=== PATIENT | female | born 1995 | race Caucasian/White ===

== ENCOUNTER 2020-03-06 15:47 | Emergency (ER) | payer OTHER ==
[2020-03-06] MEDS ORDERED: ACETAMINOPHEN 500 MG TABLET (FP) PO ONE (15:57)
[2020-03-06 15:58] VITALS: BP 108/63; PULSE 75; TEMP 98; BMI 27.3
[2020-03-06] MEDS ORDERED: ACETAMINOPHEN 500 MG TABLET (FP) ONE (16:31)
[2020-03-06 16:48] LABS: BASO % 0.6 % (0-2.0); EOS % 0.6 % (0-4.5); HEMATOCRIT 41.2 % (32.4-45.2); HEMOGLOBIN 13.9 GM/dL (10.7-15.3); LYMPH % 21.5 % (8-40); MCH 30.2 pg (25.7-33.7); MCHC 33.7 g/dl (32.0-36.0); MEAN CELL VOLUME 89.7 fl (80-96); MEAN PLT VOLUME 7.6 fl (7.5-11.1); MONO % 8.1 % (3.8-10.2); NEUT % 69.2 % (42.8-82.8); PLATELET COUNT 272 K/MM3 (134-434); RDW 13.9 % (11.6-15.6); WHITE BLOOD COUNT 9.9 K/mm3 (4.0-10.0)
[2020-03-06 17:07] LABS: POTASSIUM 3.7 mmol/L (3.5-5.1)
[2020-03-06 17:08] LABS: URINE APPEARANCE CLEAR; URINE BILIRUBIN NEGATIVE (NEGATIVE); URINE COLOR YELLOW; URINE GLUCOSE (UA) NEGATIVE (NEGATIVE); URINE KETONE NEGATIVE (NEGATIVE); URINE LEUK ESTERASE NEGATIVE (NEGATIVE); URINE NITRITE NEGATIVE (NEGATIVE); URINE PROTEIN NEGATIVE (NEGATIVE); URINE UROBILINOGEN 0.2 mg/dL (0.2-1.0)
[2020-03-06 17:10] LABS: BLOOD UREA NITROGEN 8.4 mg/dL (7-18); CALCIUM 9.2 mg/dL (8.5-10.1)
[2020-03-06 17:14] LABS: CREATININE 0.6 mg/dL (0.55-1.3)
== END 2020-03-06 17:56 | disposition home or self-care (01) ==
LOC: EDBD → JER 15:47
DX: O99.891 Other specified diseases and conditions complicating pregnancy (principal); Z3A.01 Less than 8 weeks gestation of pregnancy
CPT/HCPCS: 36415; 76817-TC; 80048; 81003; 84702; 85025; 87070; 87086; 87186; 87205; 99284-25

== ENCOUNTER 2020-06-19 14:36 | Emergency (ER) | payer OTHER ==
[2020-06-19 14:45] VITALS: BMI 24.4
[2020-06-19 17:00] VITALS: BP 120/67; PULSE 94; TEMP 98.3
[2020-06-19 17:50] LABS: PH,URINE 5.5 (5.0-8.0); URINE APPEARANCE CLEAR; URINE BILIRUBIN NEGATIVE (NEGATIVE); URINE COLOR YELLOW; URINE GLUCOSE (UA) 1+ (NEGATIVE); URINE KETONE NEGATIVE (NEGATIVE); URINE LEUK ESTERASE NEGATIVE (NEGATIVE); URINE NITRITE NEGATIVE (NEGATIVE); URINE PROTEIN NEGATIVE (NEGATIVE); URINE UROBILINOGEN 0.2 mg/dL (0.2-1.0)
== END 2020-06-19 19:30 | disposition home or self-care (01) ==
LOC: JER 14:36
DX: M54.9 Dorsalgia, unspecified (principal); Z3A.23 23 weeks gestation of pregnancy
CPT/HCPCS: 76815; 76817-TC; 81003; 99285-25

== ENCOUNTER 2020-10-07 21:30 | Inpatient (IN) | payer OTHER ==
[2020-10-08 02:02] LABS: BASO % 0.6 % (0-2.0); EOS % 0.2 % (0-4.5); HEMATOCRIT 31.9 % (32.4-45.2); HEMOGLOBIN 11.1 GM/dL (10.7-15.3); LYMPH % 20.9 % (8-40); MCH 31.6 pg (25.7-33.7); MCHC 34.9 g/dl (32.0-36.0); MEAN CELL VOLUME 90.7 fl (80-96); MEAN PLT VOLUME 7.5 fl (7.5-11.1); MONO % 5.9 % (3.8-10.2); NEUT % 72.4 % (42.8-82.8); PLATELET COUNT 344 10^3/uL (134-434); RBC 3.51 M/mm3 (3.60-5.2); RDW 12.7 % (11.6-15.6); WHITE BLOOD COUNT 10.6 K/mm3 (4.0-10.0)
[2020-10-08 02:22] LABS: BLOOD UREA NITROGEN 9.3 mg/dL (7-18); CALCIUM 9.2 mg/dL (8.5-10.1)
[2020-10-08 02:26] LABS: CREATININE 0.5 mg/dL (0.55-1.3)
[2020-10-08] MEDS ORDERED: ELECTROLYTE-148 SOLN 1,000 ML IV SCH (02:30)
[2020-10-08 02:42] VITALS: BMI 27.2
[2020-10-08 02:51] LABS: INR 0.9 (0.83-1.09); PROTHROMBIN TIME (PATIENT) 10.9 SEC (9.7-13.0)
[2020-10-08] MEDS ORDERED: FENTANYL/BUPIVACAINE/NS/PF - PCEA - 50 ML DISP.SYRIN EP ONE (03:17)
[2020-10-08] MEDS ORDERED: PCA PUMP NR ONE (03:18)
[2020-10-08 03:20] LABS: HIV INTERPRETATION NEGATIVE (NEGATIVE)
[2020-10-08] MEDS ORDERED: NALOXONE HCL 0.4 MG/ML VIAL IVPUSH PRN (04:04)
[2020-10-08] MEDS ORDERED: FENTANYL/BUPIVACAINE/NS/PF - PCEA - 50 ML DISP.SYRIN EP SCH (04:15)
[2020-10-08] MEDS ORDERED: LIDOCAINE HCL 1% PRESERVATIVE FREE - 30ML VIAL ONE (04:45)
[2020-10-08] MEDS ORDERED: OXYTOCIN 20 UNITS in 0.9% NS 20 UNIT/1,000 ML INFUS.BAG IV ONE ×2 (04:46→06:05)
[2020-10-08] MEDS ORDERED: BENZOCAINE 28 GM HEMORRHOIDAL OINTMENT TP PRN (05:12)
[2020-10-08] MEDS ORDERED: WITCH HAZEL 50% (TUCKS) 40 PAD/JAR PAD TP PRN (05:12)
[2020-10-08] MEDS ORDERED: BISACODYL 10 MG SUPP.RECT RC PRN (05:12)
[2020-10-08] MEDS ORDERED: BENZOCAINE 20% 57 GM BOTTLE TP PRN (05:12)
[2020-10-08] MEDS ORDERED: OXYTOCIN 20 UNITS in 0.9% NS 20 UNIT/1,000 ML INFUS.BAG IV SCH (05:15)
[2020-10-08 08:45] LABS: POC NITRAZINE NEG
[2020-10-08] MEDS: IBUPROFEN 600 MG TABLET (FP) PO PRN ×2 (10:09→23:52)
[2020-10-08] MEDS: ACETAMINOPHEN 325 MG TABLET (FP) PO PRN (23:52)
[2020-10-09 08:55] LABS: BASO % 0.3 % (0-2.0); EOS % 0.5 % (0-4.5); HEMATOCRIT 29.5 % (32.4-45.2); HEMOGLOBIN 9.9 GM/dL (10.7-15.3); LYMPH % 20.5 % (8-40); MCH 30.8 pg (25.7-33.7); MCHC 33.4 g/dl (32.0-36.0); MEAN CELL VOLUME 92.1 fl (80-96); MEAN PLT VOLUME 7.6 fl (7.5-11.1); MONO % 6.1 % (3.8-10.2); NEUT % 72.6 % (42.8-82.8); PLATELET COUNT 237 10^3/uL (134-434); WHITE BLOOD COUNT 11.6 K/mm3 (4.0-10.0)
[2020-10-09] MEDS: IBUPROFEN 600 MG TABLET (FP) PO PRN (14:12)
[2020-10-09] MEDS: ACETAMINOPHEN 325 MG TABLET (FP) PO PRN (14:13)
[2020-10-09] MEDS ORDERED: SENNOSIDES/DOCUSATE COMBO (SENNA PLUS) TABLET (UD) PO PRN (22:00)
[2020-10-10] MEDS: IBUPROFEN 600 MG TABLET (FP) PO PRN ×2 (00:54→08:38)
[2020-10-10] MEDS: ACETAMINOPHEN 325 MG TABLET (FP) PO PRN (00:54)
[2020-10-10 09:40] VITALS: BP 90/56; PULSE 76; TEMP 97.8
== END 2020-10-10 12:15 | disposition home or self-care (01) | DRG 560 ==
LOC: JDEL 21:30 → JLDR 10-08 01:25 → J3W 10-08 07:45
PROVIDERS: ADMIT Student in an Organized Health Care Education/Training Program; ATTEND Student in an Organized Health Care Education/Training Program
PROC: 10E0XZZ Delivery of Products of Conception, External Approach (ICD-10-PCS; principal; 2020-10-08)
DX: O90.81 Anemia of the puerperium (principal); D64.9 Anemia, unspecified; Z3A.39 39 weeks gestation of pregnancy; Z37.0 Single live birth
CPT/HCPCS: 36415; 59409; 76819-TC; 80048; 83986-QW; 85025; 85610; 85730; 86780; 86850; 86900; 86901; 87389; C9803; U0003; U0005

== ENCOUNTER 2020-11-05 07:19 | Emergency (ER) | payer OTHER ==
[2020-11-05 07:59] VITALS: TEMP 98.3; BMI 23.2
[2020-11-05 08:51] LABS: BASO % 0.7 % (0-2.0); EOS % 1.1 % (0-4.5); HEMATOCRIT 36.3 % (32.4-45.2); HEMOGLOBIN 12.5 GM/dL (10.7-15.3); LYMPH % 29.9 % (8-40); MCHC 34.6 g/dl (32.0-36.0); MEAN CELL VOLUME 89.5 fl (80-96); MEAN PLT VOLUME 7.3 fl (7.5-11.1); MONO % 5.4 % (3.8-10.2); NEUT % 62.9 % (42.8-82.8); PLATELET COUNT 291 10^3/uL (134-434); RBC 4.05 M/mm3 (3.60-5.2); RDW 13.5 % (11.6-15.6); WHITE BLOOD COUNT 8.8 K/mm3 (4.0-10.0)
[2020-11-05 09:09] LABS: CHLORIDE 110 mmol/L (98-107); SODIUM 140 mmol/L (136-145)
[2020-11-05 09:11] LABS: ALBUMIN 3.9 g/dl (3.4-5.0); ANION GAP 8 MMOL/L (8-16); BLOOD UREA NITROGEN 17.8 mg/dL (7-18); CALCIUM 8.7 mg/dL (8.5-10.1); CO2 22 mmol/L (21-32); GLUCOSE,RANDOM 94 mg/dL (74-106)
[2020-11-05 09:13] LABS: SGOT/AST 16 U/L (15-37); SGPT/ALT 26 U/L (13-61)
[2020-11-05 09:15] LABS: CREATININE 0.7 mg/dL (0.55-1.3)
[2020-11-05 09:16] LABS: BILIRUBIN,TOTAL 0.3 mg/dL (0.2-1); TOT PROT 7.4 g/dl (6.4-8.2)
[2020-11-05 09:17] LABS: ALK PHOS 125 U/L (45-117)
[2020-11-05 10:17] LABS: EPI CELLS 1 /uL (0-25.1); HYALINE CASTS 1 /uL (0-3.1); URINE APPEARANCE CLEAR; URINE BACTERIA 0 /uL (0-1359); URINE BILIRUBIN NEGATIVE (NEGATIVE); URINE COLOR YELLOW; URINE GLUCOSE (UA) NEGATIVE (NEGATIVE); URINE KETONE NEGATIVE (NEGATIVE); URINE LEUK ESTERASE NEGATIVE (NEGATIVE); URINE NITRITE NEGATIVE (NEGATIVE); URINE PROTEIN NEGATIVE (NEGATIVE); URINE RBC 5 /uL (0-23.9); URINE UROBILINOGEN 0.2 mg/dL (0.2-1.0); URINE WBC 2 /uL (0-25.8)
[2020-11-05 13:19] VITALS: BP 128/65; PULSE 69
== END 2020-11-05 13:25 | disposition home or self-care (01) ==
LOC: JER 07:19
DX: O72.1 Other immediate postpartum hemorrhage (principal); N93.9 Abnormal uterine and vaginal bleeding, unspecified
CPT/HCPCS: 36415; 76830-TC; 80053; 81003; 84702; 85025; 86850; 86900; 86901; 87086; 99285-25

== ENCOUNTER 2022-05-15 13:27 | Emergency (ER) | payer OTHER ==
[2022-05-15 13:32] VITALS: RESP 18; TEMP 98.1; BMI 20.5
[2022-05-15] MEDS ORDERED: LACTATED RINGERS SOLUTION 1000 ML INFUS.BAG IV ONE (15:26)
[2022-05-15] MEDS ORDERED: ACETAMINOPHEN 1000 MG/100 ML BAG IVPB ONE (16:16)
[2022-05-15] MEDS ORDERED: ACETAMINOPHEN INJECTION 100 ML IVPB ONE (16:18)
[2022-05-15 16:19] LABS: BASO % 0.2 % (0-2.0); EOS % 0.2 % (0-4.5); HEMATOCRIT 45.5 % (32.4-45.2); LYMPH % 6.1 % (8-40); MCH 29.1 pg (25.7-33.7); MCHC 33.1 g/dl (32.0-36.0); MEAN PLT VOLUME 7.6 fl (7.5-11.1); MONO % 3.4 % (3.8-10.2); NEUT % 90.1 % (42.8-82.8); PLATELET COUNT 295 10^3/uL (134-434); RBC 5.17 M/mm3 (3.60-5.2); WHITE BLOOD COUNT 11.7 K/mm3 (4.0-10.0)
[2022-05-15 16:22] LABS: PH,URINE 5.5 (5.0-8.0); URINE APPEARANCE CLOUDY; URINE BILIRUBIN NEGATIVE (NEGATIVE); URINE COLOR YELLOW; URINE GLUCOSE (UA) NEGATIVE (NEGATIVE); URINE KETONE TRACE (NEGATIVE); URINE LEUK ESTERASE NEGATIVE (NEGATIVE); URINE NITRITE NEGATIVE (NEGATIVE); URINE PROTEIN NEGATIVE (NEGATIVE)
[2022-05-15 16:25] LABS: HCG,QUALITATIVE URINE Negative
[2022-05-15 17:05] LABS: CALCIUM 8.7 mg/dL (8.5-10.1)
[2022-05-15 17:06] LABS: MAGNESIUM 2.1 mg/dL (1.8-2.4)
[2022-05-15 17:09] LABS: CREATININE 0.8 mg/dL (0.55-1.3); TOT PROT 7.5 g/dl (6.4-8.2)
[2022-05-15 17:11] LABS: BILIRUBIN,TOTAL 0.7 mg/dL (0.2-1)
[2022-05-15 17:52] VITALS: BP 112/72; PULSE 88
== END 2022-05-15 17:53 | disposition home or self-care (01) ==
LOC: JER 13:27
PROC: 3E033GC Introduction of Other Therapeutic Substance into Peripheral Vein, Percutaneous Approach (ICD-10-PCS; principal; 2022-05-15)
DX: R51.9 Headache, unspecified (principal); R11.2 Nausea with vomiting, unspecified
CPT/HCPCS: 0241U-QW; 36415; 80053; 81003; 83735; 84703; 85025; 87077; 87086; 93005; 93010; 99284-25

== ENCOUNTER 2023-07-28 12:25 | Inpatient (IN) | payer OTHER ==
[2023-07-28 15:46] VITALS: BMI 25.4
[2023-07-28] MEDS: ELECTROLYTE-148 SOLN 1,000 ML IV SCH (16:35)
[2023-07-28] MEDS ORDERED: OXYTOCIN 30 UNITS in 0.9% NS 30 UNIT/500 ML INFUS.BAG IVPB ONE (16:54)
[2023-07-28 17:05] LABS: BASO % 0.5 % (0-2.0); EOS % 0.2 % (0-4.5); HEMATOCRIT 35.5 % (32.4-45.2); LYMPH % 13.5 % (8-40); MCH 32.1 pg (25.7-33.7); MCHC 33.7 g/dl (32.0-36.0); MEAN CELL VOLUME 95.1 fl (80-96); MEAN PLT VOLUME 7.3 fl (7.5-11.1); MONO % 5.8 % (3.8-10.2); PLATELET COUNT 256 10^3/uL (134-434); RBC 3.73 M/mm3 (3.60-5.2); RDW 13.3 % (11.6-15.6); WHITE BLOOD COUNT 13.6 K/mm3 (4.0-10.0)
[2023-07-28] MEDS: OXYTOCIN 30 UNITS in 0.9% NS 30 UNIT/500 ML INFUS.BAG IVPB SCH (17:05)
[2023-07-28 17:09] LABS: INR 0.96 (0.83-1.09); PROTHROMBIN TIME (PATIENT) 11.1 SEC (9.7-13.0)
[2023-07-28 17:12] LABS: ACTIVATED PTT 27.1 SECONDS (25.2-36.5)
[2023-07-28 17:29] LABS: POTASSIUM 3.7 mmol/L (3.5-5.1)
[2023-07-28 17:30] LABS: CALCIUM 8.7 mg/dL (8.5-10.1)
[2023-07-28 17:31] LABS: BLOOD UREA NITROGEN 7.3 mg/dL (7-18)
[2023-07-28 17:34] LABS: CREATININE 0.5 mg/dL (0.55-1.3)
[2023-07-28] MEDS ORDERED: LIDO 2%/EPI 1:200000 PRESRVFRE (20 ML SDVIAL) ONE (18:15)
[2023-07-28] MEDS ORDERED: BUPIVACAINE HCL/PF 0.25% (2.5MG/ML) 10 ML VIAL ONE (18:15)
[2023-07-28] MEDS ORDERED: FENTANYL/BUPIVACAINE/NS/PF - PCEA - 50 ML DISP.SYRIN EP ONE (18:16)
[2023-07-28] MEDS: FENTANYL/BUPIVACAINE/NS/PF - PCEA - 50 ML DISP.SYRIN EP SCH (18:35)
[2023-07-28] MEDS ORDERED: NALOXONE HCL 0.4 MG/ML VIAL IVPUSH PRN (18:38)
[2023-07-28] MEDS ORDERED: MISOPROSTOL 200 MCG TABLET ONE (18:44)
[2023-07-28] MEDS: MISOPROSTOL 100 MCG TABLET PR ONE (19:00)
[2023-07-28] MEDS ORDERED: WITCH HAZEL 50% (TUCKS) 40 PAD/JAR PAD TP PRN (19:02)
[2023-07-28] MEDS ORDERED: BENZOCAINE 28 GM HEMORRHOIDAL OINTMENT TP PRN (19:02)
[2023-07-28] MEDS ORDERED: BISACODYL 10 MG SUPP.RECT RC PRN (19:02)
[2023-07-28] MEDS ORDERED: OXYTOCIN 20 UNITS in 0.9% NS 20 UNIT/1,000 ML INFUS.BAG IV ONE (19:20)
[2023-07-28] MEDS: OXYTOCIN 20 UNITS in 0.9% NS 20 UNIT/1,000 ML INFUS.BAG IV SCH (19:29)
[2023-07-28 19:54] VITALS: RESP 18
[2023-07-29] MEDS: ACETAMINOPHEN 325 MG TABLET (FP) PO PRN (00:37)
[2023-07-29] MEDS: BENZOCAINE 20% 57 GM BOTTLE TP PRN (00:37)
[2023-07-29 07:31] LABS: BASO % 0.2 % (0-2.0); EOS % 0.2 % (0-4.5); HEMOGLOBIN 11.4 GM/dL (10.7-15.3); MCH 32.5 pg (25.7-33.7); MCHC 34.5 g/dl (32.0-36.0); MEAN CELL VOLUME 94.2 fl (80-96); MEAN PLT VOLUME 7.6 fl (7.5-11.1); MONO % 5.2 % (3.8-10.2); NEUT % 81.4 % (42.8-82.8); PLATELET COUNT 206 10^3/uL (134-434); RBC 3.51 M/mm3 (3.60-5.2); RDW 13.4 % (11.6-15.6); WHITE BLOOD COUNT 15.2 K/mm3 (4.0-10.0)
[2023-07-29] MEDS ORDERED: SENNOSIDES/DOCUSATE COMBO (SENNA PLUS) TABLET (UD) PO PRN (22:00)
[2023-07-30] MEDS: IBUPROFEN 600 MG TABLET (FP) PO PRN (08:32)
[2023-07-30 10:41] VITALS: BP 107/65; PULSE 70; TEMP 98
[2023-07-31 10:11] LABS: POC NITRAZINE NEG
== END 2023-07-30 12:55 | disposition home or self-care (01) | DRG 560 ==
LOC: JDEL 12:25 → JLDR 15:20 → J3W 21:13
PROVIDERS: ADMIT Student in an Organized Health Care Education/Training Program; ATTEND Student in an Organized Health Care Education/Training Program
PROC: 10E0XZZ Delivery of Products of Conception, External Approach (ICD-10-PCS; principal; 2023-07-28)
DX: O41.03X0 Oligohydramnios, third trimester, not applicable or unspecified (principal); Z3A.38 38 weeks gestation of pregnancy; Z37.0 Single live birth
CPT/HCPCS: 36415; 59025; 76819-TC; 80048; 83986-QW; 85025; 85610; 85730; 86780; 86850; 86900; 86901